=== PATIENT | female | born 1990 | race Caucasian/White ===

== ENCOUNTER 2016-03-31 16:31 | Emergency (ER) | payer OTHER ==
[~2016-03-31] VITALS: Wt 60.0 kg
[~2016-03-31 16:31] MED LIST: ALBU8.5H3 INH; DIC250 PO; FERR240T9 PO; GUAI120S26 PO; IBUP-1542 PO; PREN-39 PO
[2016-03-31] MEDS ORDERED: KETOROLAC 60 MG INJ IM STA (17:29)
[2016-03-31] MEDS ORDERED: ACETAMINOPHEN/CODEINE #3 TAB PO ONE (17:30)
--- NOTE | 2016-03-31 18:34 | RADRPT ---
PROCEDURE: XR Chest. CLINICAL INDICATION: Chest pain TECHNIQUE: Single AP portable chest. COMPARISON: 07/16/2015 FINDINGS: The cardiomediastinal silhouette is within normal limits..The lungs are clear though pleural effusio n or focal consolidation. The osseous structures and soft tissues are unremarkable. IMPRESSION: No evidence for active cardiopulmonary disease. RPTAT:AAJJ Ki Almeida Physician Date Time Electronically viewed and signed by Ki Almeida Physician on 03/31/2016 18:34 LIBERTAD/
[2016-03-31] MEDS ORDERED: TRAM50TA2 PO (18:48)
[2016-03-31] MEDS ORDERED: IBUP-1542 PO (18:48)
--- NOTE | 2016-03-31 18:50 | ERD ---
ER Documentation Chief Complaint Date/Time DATE: 03/31/16 TIME: 18:49 Chief Complaint LEFT SIDE CHEST PAIN SINCE LAST NIGHT NON TRAUMATIC HPI This 25-year-old female complains of left-sided anterior chest wall pain for last 1 day. She denies any lifting, recent cough, fevers. The pain is worse with touching. Slightly worse with movement and deep breathing. She denies any leg swelling, shortness of breath. ROS All systems reviewed and are negative except as per history of present illness. Medications Home Meds Active Scripts Tramadol HCl (Tramadol HCl) 50 Mg Tablet, 50 MG PO Q4 Y for PAIN, #15 TAB Prov:MILAGRO BRANCH MD 03/31/16 Ibuprofen* (Motrin*) 600 Mg Tab, 600 MG PO Q6, #20 TAB Prov:MILAGRO BRANCH MD 03/31/16 Djjbjqtevlw-Z-Flkqepqifb Hb* (Guaifenesin* DM Syrup) 120 Ml Syrup, 10 ML PO Q4H Y for COUGH, #120 ML Prov:CARY PETERS PA-C 07/16/15 Albuterol Sulfate* (Proair HFA*) 8.5 Gm Hfa.aer.ad, 2 PUFF INH Q4, #1 INHALER Prov:CARY PETERS PA-C 07/16/15 Ibuprofen* (Motrin*) 600 Mg Tab, 600 MG PO Q6, #30 TAB Prov:CARY PETERS PA-C 07/16/15 Dicloxacillin Sodium* (Dynapen*) 250 Mg Cap, 250 MG PO QID for 10 Days, CAP Prov:CHRISTEN CARREON 09/03/14 Reported Medications Ferrous Gluconate (Iron) 1 Tab Tablet, 1 TAB PO DAILY 07/15/13 Vits W-Ca,Fe,Fa(<1MG) ( Vitamins) 1 Tab Tablet, 1 TAB PO DAILY 07/15/13 Allergies Allergies: Coded Allergies: No Known Allergy (Unverified , 07/15/13) PMhx/Soc History of Surgery: Yes (C- SECTION X3) Anesthesia Reaction: No Hx Neurological Disorder: No Hx Respiratory Disorders: No Hx Cardiac Disorders: No Hx Psychiatric Problems: No Hx Miscellaneous Medical Probl: No Hx Alcohol Use: No Hx Substance Use: No Hx Tobacco Use: No Smoking Status: Never smoker Physical Exam Vitals Vital Signs Date Time Temp Pulse Resp B/P Pulse Ox O2 Delivery O2 Flow Rate FiO2 03/31/16 16:33 96.9 90 20 123/82 100 Physical Exam Const: [] Alert, [id number]. Head: Atraumatic Eyes: Normal Conjunctiva ENT: Normal External Ears, Nose and Mouth. Neck: Full range of motion..~ No meningismus. Resp: Clear to auscultation bilaterally Cardio: Regular rate and rhythm, no murmurs. There is tenderness in the left anterior chest wall. There is no crepitance or skin changes. Abd: Soft, non tender, non distended. Normal bowel sounds Skin: No petechiae or rashes Back: No midline or flank tenderness Ext: No cyanosis, or edema Neur: Awake and alert Psych: Normal Mood and Affect Results 24 hrs Current Medications Medications (Trade) Dose Ordered Sig/Kim Route PRN Reason Start Time Stop Time Status Last Admin Dose Admin Acetaminophen/ Codeine Phosphate (Tylenol No.3) 1 tab ONCE ONCE PO 03/31/16 17:30 03/31/16 17:31 DC 03/31/16 17:59 Ketorolac Tromethamine (Toradol) 60 mg ONCE STAT IM 03/31/16 17:29 03/31/16 17:30 DC 03/31/16 17:59 Procedures/MDM Chest X-ray 1V Interpreted by me: Soft Tissue: No acute abnormalities Bones: No acute abnormalities Mediastinum/Cardiac Silhouette/Lungs: [No acute abnormalities]. Impression- normal 1 view chest x-ray EKG: Rate/Rhythm: [Normal Sinus Rhythm] QRS, ST, T-waves: [No changes consistent w/ acute ischemia] Impression: [No evidence of ischemia or arrhythmia] rate equals 82 Patient presents with left chest wall pain of uncertain etiology, likely costochondritis. Patient is a well score of 0 there is no signs or symptoms to suggest acute coronary syndrome, pneumonia, hemothorax, pneumothorax, additional causes of chest wall pain. She was treated with ibuprofen Tylenol and observation at home. The patient was stable with no new complaints during the ER course. Clinically, there is no current evidence to suggest meningitis, sepsis, acute abdomen, pneumonia, acute coronary syndrome, pulmonary embolism, or any other emergent condition appearing to require further evaluation or hospitalization. The patient should certainly return for any new or worsening symptoms per the aftercare instructions. They should otherwise follow-up with her primary care doctor for reevaluation this week. Departure Diagnosis: Primary Impression: Chest pain Chest pain type: unspecified Qualified Code: R07.9 - Chest pain, unspecified type Condition: Stable Patient Instructions: Chest Pain, Uncertain Cause, Chest Wall Pain, Costochondritis Additional Instructions: Examines normal hoy. Cheque otro vez con moreno doctor primario en el proximo valente or regresa para mas o nueva simptomas. MILAGRO BRANCH MD Mar 31, 2016 18:50
[2016-03-31 19:06] VITALS: BP 127/80; PULSE 63; RESP 18; TEMP 98.7
== END 2016-03-31 19:08 | disposition home or self-care (01) ==
LOC: FTE 16:31
DX: R07.89 Other chest pain (principal)
CPT/HCPCS: 71010; 93005; 96372; J1885; Z7502; Z7610

== ENCOUNTER 2017-04-12 20:11 | Emergency (ER) | END 2017-04-13 01:26 | disposition left against medical advice (07) ==

== ENCOUNTER 2017-07-01 07:37 | Emergency (ER) | END 2017-07-01 09:53 | disposition home or self-care (01) ==

== ENCOUNTER 2018-01-21 16:18 | Emergency (ER) | END 2018-01-21 17:55 | disposition home or self-care (01) ==

== ENCOUNTER 2018-02-05 17:11 | Emergency (ER) | END 2018-02-05 20:01 | disposition home or self-care (01) ==

== ENCOUNTER 2018-05-21 05:46 | Inpatient (IN) | payer OTHER ==
[~2018-05-21] VITALS: Ht 157.5 cm; Wt 77.0 kg
[~2018-05-21 05:46] MED LIST changes: +ACET500C5 PO; -ALBU8.5H3 INH; +ALBU8.5H8 INH; +FAMO-96 PO; +IBUP800T48 PO; +TRAM50TA2 PO
[2018-05-21] MEDS ORDERED: ONDANSETRON (ODT) 4 MG TAB ODT STA (07:06)
[2018-05-21] MEDS ORDERED: HYDROCODONE/APAP (5/325) TAB PO ONE (07:30)
[2018-05-21] MEDS ORDERED: SOD CHLORIDE 0.9% 1,000 ML IV STA (08:53)
[2018-05-21] MEDS ORDERED: PIPER-TAZO 3.375 GM IV (PMX) 100 ML IVPB ONE (09:00)
--- NOTE | 2018-05-21 09:06 | EN ---
Date/Time of Note Date/Time of Note DATE: 05/21/18 TIME: 09:05 ER Progress Note I have seen and evaluated the patient along with the PA and/or ENERGY RISK MANAGEMENT ANALYST provider. I agree with the evaluation and plan of care. Please see their documentation for full ER course and evaluation. In short: Patient has right lower quadrant abdominal pain On exam: Tenderness of the right lower quadrant slightly medial to McBurney's point Assessment and plan: Patient has slight leukocytosis, right lower quadrant abdominal pain and CT concerning for appendicitis. The patient was given Zosyn. She is n.p.o. Dr. Ritter, on-call general surgeon was notified of admission. IV fluids provided. Accepting care team and consultations: I discussed the current laboratory data, diagnostic imaging and emergency care provided. Admitting team: Dr. Mehta Admitting team indication: Insurance directed, [facility] MICHELLE JAMIL MD May 21, 2018 09:06
--- NOTE | 2018-05-21 09:46 | ERD ---
ER Documentation Chief Complaint Chief Complaint abdominal pain since 329 HPI 27-year-old female presenting with abdominal pain. Patient states she has some right lower quadrant pain that started today.. Pain is constant. She states is been going on since this morning. She had one episode of vomiting. Denies any other medical problems. NKDA. Surgical history denies. Social history denies ROS All systems reviewed and are negative except as per history of present illness. Medications Home Meds Active Scripts Acetaminophen* (Tylophen*) 500 Mg Capsule, 1 CAP PO Q6H PRN for PAIN AND OR ELEVATED TEMP, #20 CAP Prov:MILAGRO BRANCH MD 02/05/18 Famotidine* (Pepcid*) 20 Mg Tablet, 20 MG PO BID for 14 Days, TAB Prov:MILAGRO BRANCH MD 02/05/18 Acetaminophen* (Tylophen*) 500 Mg Capsule, 1 CAP PO Q6H PRN for PAIN AND OR EL EVATED TEMP, #20 CAP Prov:CARY PETERS PA-C 01/21/18 Ibuprofen* (Motrin*) 800 Mg Tab, 800 MG PO Q6H PRN for PAIN AND OR ELEVATED TEMP, #30 TAB Prov:MICHELLE WALTERS MD 07/01/17 Tramadol HCl (Tramadol HCl) 50 Mg Tablet, 50 MG PO Q4 PRN for PAIN, #15 TAB Prov:MILAGRO BRANCH MD 03/31/16 Ibuprofen* (Motrin*) 600 Mg Tab, 600 MG PO Q6, #20 TAB Prov:MILAGRO BRANCH MD 03/31/16 Zarkwwpehkl-A-Ogusqbvnhw Hb* (Guaifenesin* DM Syrup) 120 Ml Syrup, 10 ML PO Q4H PRN for COUGH, #120 ML Prov:CARY PETERS PA-C 07/16/15 Albuterol Sulfate* (Proair HFA*) 8.5 Gm Hfa.aer.ad, 2 PUFF INH Q4, #1 INHALER Prov:CARY PETERS PA-C 07/16/15 Ibuprofen* (Motrin*) 600 Mg Tab, 600 MG PO Q6, #30 TAB Prov:CARY PETERS PA-C 07/16/15 Dicloxacillin Sodium* (Dynapen*) 250 Mg Cap, 250 MG PO QID for 10 Days, CAP Prov:CHRISTEN CARREON 09/03/14 Reported Medications Ferrous Gluconate (Iron) 1 Tab Tablet, 1 TAB PO DAILY 07/15/13 Vits W-Ca,Fe,Fa(<1MG) ( Vitamins) 1 Tab Tablet, 1 TAB PO DAILY 07/15/13 Allergies Allergies: Coded Allergies: No Known Allergy (Unverified , 05/21/18) PMhx/Soc History of Surgery: Yes (c section x 3 ) Anesthesia Reaction: No Hx Neurological Disorder: No Hx Respiratory Disorders: No Hx Cardiac Disorders: Yes (anemia) Hx Psychiatric Problems: No Hx Miscellaneous Medical Probl: No Hx Alcohol Use: No Hx Substance Use: No Hx Tobacco Use: No Smoking Status: Never smoker FmHx Family History: No diabetes, No coronary disease, No other Physical Exam Vitals Vital Signs Date Temp Pulse Resp B/P (MAP) Pulse Ox O2 O2 Flow FiO2 Time Delivery Rate 05/21/18 97.7 54 17 113/73 100 Room Air 08:57 (86) 05/21/18 97.9 62 18 114/56 100 05:50 (75) Physical Exam GENERAL: The patient is well-appearing, well-nourished, in no acute distress HEENT: Atraumatic. Conjunctivae are pink. Pupils equal, round, and reactive to light. There is no scleral icterus. Tympanic membranes clear bilaterally. Richard pharynx clear. NECK: C-spine is soft and supple. There is no meningismus. There is no cervical lymphadenopathy. CHEST: Clear to auscultation bilaterally. There are no rales, wheezes or rhonchi. HEART: Regular rate and rhythm. No murmurs, clicks, rubs or gallops. ABDOMEN: Normal active bowel sounds. Nontender to palpation of suprapubic region of the right lower quadrant. Mild epigastric pain. Patient does have pain with jumping.. BACK: No midline or flank tenderness. Result Diagram: 05/21/18 0714 05/21/18 0714 Results 24 hrs Laboratory Tests Test 05/21/18 07:14 05/21/18 07:15 05/21/18 07:17 White Blood Count 11.7 10^3/ul Red Blood Count 4.46 10^6/ul Hemoglobin 10.4 g/dl Hematocrit 34.4 % Mean Corpuscular Volume 77.1 fl Mean Corpuscular Hemoglobin 23.3 pg Mean Corpuscular 30.2 g/dl Hemoglobin Concent Red Cell Distribution Width 19.2 % Platelet Count 297 10^3/UL Mean Platelet Volume 9.9 fl Immature Granulocytes % 0.600 % Neutrophils % 77.6 % Lymphocytes % 12.8 % Monocytes % 7.9 % Eosinophils % 0.8 % Basophils % 0.3 % Nucleated Red Blood Cells % 0.0 /100WBC Immature Granulocytes # 0.070 10^3/ul Neutrophils # 9.1 10^3/ul Lymphocytes # 1.5 10^3/ul Monocytes # 0.9 10^3/ul Eosinophils # 0.1 10^3/ul Basophils # 0.0 10^3/ul Nucleated Red Blood Cells # 0.0 10^3/ul Sodium Level 142 mmol/L Potassium Level 4.5 mmol/L Chloride Level 104 mmol/L Carbon Dioxide Level 29 mmol/L Anion Gap 9 Blood Urea Nitrogen 11 mg/dl Creatinine 0.49 mg/dl Est Glomerular Filtrat > 60 mL/min Rate mL/min Glucose Level 101 mg/dl Calcium Level 9.6 mg/dl Total Bilirubin 0.2 mg/dl Direct Bilirubin 0.00 mg/dl Indirect Bilirubin 0.2 mg/dl Aspartate Amino 41 IU/L Transf (AST/SGOT) Alanine 70 IU/L Aminotransferase (ALT/SGPT) Alkaline Phosphatase 93 IU/L Total Protein 8.0 g/dl Albumin 4.7 g/dl Globulin 3.30 g/dl Albumin/Globulin Ratio 1.42 Lipase 62 U/L Urine Color YELLOW Urine Clarity CLEAR Urine pH 6.0 Urine Specific [place] 1.019 Urine Ketones NEGATIVE mg/dL Urine Nitrite NEGATIVE mg/dL Urine Bilirubin NEGATIVE mg/dL Urine Urobilinogen NEGATIVE mg/dL Urine Leukocyte Esterase NEGATIVE [place]/ul Urine Hemoglobin NEGATIVE mg/dL Urine Glucose NEGATIVE mg/dL Urine Total Protein NEGATIVE mg/dl POC Beta HCG, Qualitative NEGATIVE Current Medications Medications Dose Sig/Kim Start Time Status Last (Trade) Ordered Route PRN Stop Time Admin Dose Reason Admin 1 tab ONCE ONCE 05/21/18 DC 05/21/18 Acetaminophen PO 07:30 07:19 / 05/21/18 07:31 Hydrocodone Bitart ([place] (5/325)) Ondansetron 4 mg ONCE STAT 05/21/18 DC 05/21/18 HCl (Zofran ODT 07:06 07:19 Odt) 05/21/18 07:07 Piperacillin 100 ml @ ONCE ONCE 05/21/18 DC 05/21/18 Sod/ 200 mls/hr IVPB 09:00 09:01 Tazobactam 05/21/18 09:29 Sod Sodium 1,000 ml @ Q1H STAT 05/21/18 05/21/18 Chloride 1,000 mls/hr IV 08:53 09:01 05/21/18 09:52 Ondansetron 4 mg BRIDGE ORDER 05/21/18 HCl (Zofran PRN IV 10:00 Inj) NAUSEA/VOMITI 05/22/18 09:59 NG 650 mg ER BRIDGE 05/21/18 Acetaminophen PRN PO 10:00 (Tylenol .MILD PAIN 05/22/18 09:59 Tab) 1-3 OR TEMP Procedures/MDM DIAGNOSTIC IMAGING REPORT Patient: KIT TELLO : 1990 Age: 27 Sex: F MR #: [id number] DOS: 05/21/18 0706 Ordering MD: BRADLEY DOYLE PA-C Location: [facility] Room/Bed: PROCEDURE: CT Abdomen and Pelvis without contrast. CLINICAL INDICATION: Abdominal pain. TECHNIQUE: CT scan of the abdomen and pelvis without contrast was performed on a multidetector CT scanner. The patient was scanned without intravenous contrast. Coronal and sagittal reformatted images were obtained from the axial source images. Images were reviewed on a high-resolution PACS workstation. DICOM images are available. One or more of the following dose reduction techniques were used: -Automated exposure control. -Adjustment of the mA and/or kV according to patient size. -Use of iterative reconstruction technique. The total exam CTDI equals 12.53 mGy and the total exam DLP equals 746.81 mGy- cm. COMPARISON: Same day gallbladder ultrasound. FINDINGS: Overall exam is limited secondary to motion artifact. Please note that the sensitivity for detection of focal lesions or vascular disease is markedly reduced without intravenous contrast. There is dependent atelectatic changes. CT abdomen: Liver: Unremarkable. Biliary system: No intra or extrahepatic biliary ductal dilatation. Gallbladder: Unremarkable. Pancreas: Unremarkable. Spleen: Unremarkable. Adrenal glands: Unremarkable. Right kidney: Unremarkable. No renal or ureteric stones. No hydronephrosis or hydroureter. Left kidney: Unremarkable. No renal or ureteric stones. No hydronephrosis or hydroureter. Bowel loops: There is no bowel obstruction. Appendix is limited in evaluation due to motion artifact however appears dilated measuring 10 mm and contains dense intraluminal material, which may represent appendicolith. Lymph Nodes: There is no mesenteric lymphadenopathy. There is no retroperitoneal lymphadenopathy. Small fat-containing umbilical hernia. CT pelvis: Bowel loops: Unremarkable. Rectum: Unremarkable. Urinary bladder: Unremarkable. Globular appearance of the uterus with trace pelvic free fluid and mild pelvic stranding. Additional stranding along the anterior pelvic wall subcutaneous soft tissue. Lymph nodes: There is no iliac lymphadenopathy. There is no inguinal lymphadenopathy. Bone: No aggressive osseous lesions. IMPRESSION: 1. Overall exam is limited secondary to motion artifact. Appendix appears dilated measuring 10 mm and contains dense intraluminal material, which may represent appendicolith. Acute appendicitis not excluded, however the exam again is limited due to motion. Recommend clinical correlation. 2. Globular appearance of the uterus with trace pelvic free fluid and mild pelvi c stranding. Additional stranding along the anterior pelvic wall subcutaneous soft tissue. Recommend clinical correlation for status or any pelvic surgery. Consider further evaluation with dedicated pelvic ultrasound. DIAGNOSTIC IMAGING REPORT Patient: KIT TELLO : 1990 Age: 27 Sex: F MR #: [id number] DOS: 05/21/18 0706 Ordering MD: BRADLEY DOYLE PA-C Location: [facility] Room/Bed: PROCEDURE: US Abdomen. CLINICAL INDICATION: abdominal pain TECHNIQUE: Multiple real-time images were acquired of the patient's right upper quadrant abdomen and retroperitoneum utilizing a high resolution transducer. COMPARISON: US ABDOMEN 02/05/2018 FINDINGS: The liver demonstrates increased echogenicity. The liver is enlarged in size and no focal solid lesions are seen. The liver measures 17.7 cm in length. The portal vein is patent with normal direction of flow. No intrahepatic biliary dilatation is seen. No gallstones are identified within the gallbladder. There is no pericholecystic fluid or gallbladder wall thickening. The common bile duct measures 3 mm in maximal dimension. The visualized portions of the pancreas are unremarkable. The tail of the rodriguez creas is not seen. No free fluid is identified. The right kidney is normal in size, and demonstrate normal echogenicity and cortical thickness. The right kidney measures 11.6 cm in long dimension. There is no evidence of hydronephrosis. There are no kidney stones. RPTAT: AA IMPRESSION: Mild hepatomegaly with fatty infiltration of the liver. No evidence of gallstones. MDM: 27-year-old female presenting with abdominal pain. Patient did have pain when jumping. There is concern for appendicitis the patient will be admitted for observation and surgical consultation. This case was admitted by Dr. Walters. Patient is stable received antibiotics while the ER. JOO DOYLE PA-C May 21, 2018 09:46
[2018-05-21] MEDS ORDERED: ACETAMINOPHEN 325 MG TAB PO PRN (10:00)
[2018-05-21] MEDS ORDERED: ONDANSETRON 4 MG INJ IV PRN ×3 (10:00→21:30)
[2018-05-21 11:32] VITALS: Ht 157.5 cm; Wt 77.0 kg
--- NOTE | 2018-05-21 12:43 | QN ---
Documentation Comment PT SEEN AND EXAMINED BETTY LOMBARDO MD May 21, 2018 12:43
[2018-05-21] MEDS: SOD CHLORIDE 0.9% 1,000 ML IV SCH ×2 (12:48→22:41)
[2018-05-21] MEDS: morphine 2 MG INJ IV PRN ×2 (12:55→16:44)
[2018-05-21] MEDS ORDERED: NACL 0.9% 3 ML SYG IV SCH (13:00)
[2018-05-21] MEDS ORDERED: DOCUSATE SODIUM 100 MG CAP PO PRN (13:00)
[2018-05-21] MEDS ORDERED: METOCLOPRAMIDE 10 MG INJ IV PRN ×2 (13:00→21:30)
--- NOTE | 2018-05-21 13:55 | HP ---
DATE OF ADMISSION: 05/21/2018 REASON FOR ADMISSION: Right lower quadrant pain. HISTORY OF PRESENTING ILLNESS: This is a 27-year-old female with no past medical history who present ed to the emergency department complaining of acute onset of lower abdominal pain for 1 day. Accordi ng to the patient, the pain started having pain in the mid to lower abdomen this morning and then the pain moved to the right lower quadrant. Pain was constant. It was ongoing since this morning. The patient was having some nausea and 1 episode of vomiting. According to the patient, she is also hav ing some gas pain. Denied any fevers, chills and came to the emergency department. On arrival to ED , vital signs showed temperature of 97.7, pulse 60, respirations 17, blood pressure 113/73. White co unt was 11.7, hemoglobin 10.4, platelet count of 297. LFTs within normal limit except ALT of 70, lip ase of 62. UA was negative. The patient had a CT of the abdomen and pelvis that showed overall exam is limited. Appendix appears dilated measuring 10 mm contains dense intraluminal material which may represent appendicolith, acute appendicitis not excluded, globular appearance of uterus, trace pelvi c fluid and mild pelvic stranding, additional stranding on the anterior pelvic wall. I recommend cor relation of status on any pelvic surgery. The patient was given Zosyn and was admitted fo r possible appendicitis. PAST MEDICAL HISTORY: Anemia. ALLERGIES: NONE. PAST SURGICAL HISTORY: x3. MEDICATIONS TAKING AT HOME: Iron sulfate. SOCIAL HISTORY: Denies any history of smoking, alcohol or any drug use. Lives in [place]. REVIEW OF SYSTEMS: The patient complained of lower abdominal pain then moving to right lower quadran t. Denies any headache, any blurry vision. Intermittent chest pain on both sides secondary to gas p ain. Denies any shortness of breath. Denies any dizziness, Denies any hematemesis, any melena, any bright red blood per rectum. Denies any diarrhea. PHYSICAL EXAMINATION: VITAL SIGNS: Currently blood pressure is 113/76, afebrile, pulse is 56, saturating 100% on room air. GENERAL: The patient is awake, alert, oriented, does not appear to be in any acute distress. HEENT: Pupils are equal, round, reactive to light. NECK: Supple. No JVD. HEART: Regular rate and rhythm. LUNGS: Clear to auscultate bilaterally. ABDOMEN: Soft, some tenderness present in the suprapubic region and also in the right lower quadrant , pain in the McBurney's point, positive bowel sounds. EXTREMITIES: No clubbing, cyanosis or edema. LABORATORY DATA: Show white count of 11.7, hemoglobin 10.4, platelet count 297. BMP within normal l imit. ALT of 70. UA is negative. IMAGING: Gallbladder ultrasound shows mild hepatomegaly and fatty infiltration of liver. No evidenc e of gallstones. CT of the abdomen and pelvis shows appendix measured, dilated 10 mm, contains intra luminal material, appendicolith. Acute appendicitis cannot be excluded. Globular appearance of uter us, trace pelvic fluid. Consider further evaluation related pelvic ultrasound. ASSESSMENT AND PLAN: This is a 27-year-old female presenting with: 1. Acute onset of lower abdominal/right lower quadrant pain. CT of the abdomen and pelvis: Appendi x appears dilated measuring 10 mm containing dense intraluminal material, appendicolith and rule out acute appendicitis. 2. The patient also has trace pelvic fluid and mild pelvic stranding. 3. History of anemia, on iron. 4. Gas pain. 5. Leukocytosis. 6. Borderline elevated ALT; however the gallbladder ultrasound is negative. PLAN: At this period of time, the patient will be admitted to med-surg. The patient will be on n.p. o., started on IV fluids, started on Protonix and IV Zosyn. Surgery consultation has already been ob tained with Dr. Ritter. We will also check for PT, coags, chest x-ray and EKG. Rest of the treatmen t will depend on the patient's hospitalization course. Dictated By: BETTY MAHONEY/SUMEET Conf#: [id number] DID#: [id number] CC: JOSE RITTER MD;*EndCC*
[2018-05-21] MEDS: PIPER-TAZO 3.375 GM IV (PMX) 100 ML IVPB SCH ×2 (14:18→22:00)
[2018-05-21 14:40] VITALS: BP 100/52; PULSE 53; RESP 17
[2018-05-21] MEDS ORDERED: HYDROmorphONE 1 MG/ML SYG IV PRN (17:00)
--- NOTE | 2018-05-21 17:55 | RADRPT ---
Vent Rate: 58 bpm RR Interval: 0 msec UT Interval: 140 msec QRS Duration: 90 msec QT Interval: 466 msec QTC Interval: 457 msec P-R-T [place]: 35 - 41 - 28 degrees Sinus bradycardia Otherwise normal ECG Electronically Signed By: Rafi Mares
[2018-05-21 19:42] VITALS: BP 114/66; PULSE 79; RESP 20
--- NOTE | 2018-05-21 19:43 | CONS ---
Assessment/Plan Assessment/Plan Assessment/Plan (Daily) Abdominal pain , leukocytosis , consistent with acute appendicitis Explained my impression to patient , and rec for laparoscopic appendectomy . Details of procedure , expectations post op reviewed Have called OR . patient understands and is willing to proceed . Consultation Date/Type/Reason Admit Date/Time May 21, 2018 at 09:42 Date of Consultation: May 21, 2018 Type of Consult surgery consult Reason for Consultation Abdominal pain since yesterday . Worsening to level that she presented to ER for evaluation No prior significant past medical history . C section x 3 Date/Time of Note DATE: 05/21/18 TIME: 19:29 Hx of Present Illness patient states she began having lower and mid abdominal pain this morning , such that she finally presented to the ER for evaluation . On evaluation , she was noted to have an elevated WBC to 20k , and on CT a dilated appendix , consistent with acute appendicitis . Patient states only a history of anemia , unclear etiology Past Medical History Home Meds Active Scripts Acetaminophen* (Tylophen*) 500 Mg Capsule, 1 CAP PO Q6H PRN for PAIN AND OR ELEVATED TEMP, #20 CAP Prov:MILAGRO BRANCH MD 02/05/18 Famotidine* (Pepcid*) 20 Mg Tablet, 20 MG PO BID for 14 Days, TAB Prov:MILAGRO BRANCH MD 02/05/18 Acetaminophen* (Tylophen*) 500 Mg Capsule, 1 CAP PO Q6H PRN for PAIN AND OR ELEVATED TEMP, #20 CAP Prov:CARY PETERS PA-C 01/21/18 Ibuprofen* (Motrin*) 800 Mg Tab, 800 MG PO Q6H PRN for PAIN AND OR ELEVATED TEMP, #30 TAB Prov:MICHELLE JAMIL MD 07/01/17 Tramadol HCl (Tramadol HCl) 50 Mg Tablet, 50 MG PO Q4 PRN for PAIN, #15 TAB Prov:MILAGRO BRANCH MD 03/31/16 Ibuprofen* (Motrin*) 600 Mg Tab, 600 MG PO Q6, #20 TAB Prov:MILAGRO BRANCH MD 03/31/16 Kwitqdcaail-O-Nfwkssfrea Hb* (Guaifenesin* DM Syrup) 120 Ml Syrup, 10 ML PO Q4H PRN for COUGH, #120 ML Prov:AUTUMN PETERSIE Aubrie DALAL 07/16/15 Albuterol Sulfate* (Proair HFA*) 8.5 Gm Hfa.aer.ad, 2 PUFF INH Q4, #1 INHALER Prov:CARY PETERS Aubrie DALAL 07/16/15 Ibuprofen* (Motrin*) 600 Mg Tab, 600 MG PO Q6, #30 TAB Prov:FRANCARY Aubrie DALAL 07/16/15 Dicloxacillin Sodium* (Dynapen*) 250 Mg Cap, 250 MG PO QID for 10 Days, CAP Prov:CHRISTEN CARREON 09/03/14 Reported Medications Ferrous Gluconate (Iron) 1 Tab Tablet, 1 TAB PO DAILY 07/15/13 Vits W-Ca,Fe,Fa(<1MG) ( Vitamins) 1 Tab Tablet, 1 TAB PO DAILY 07/15/13 Medications Current Medications Sodium Chloride 1,000 ml @ 100 mls/hr Q10H IV Last administered on 05/21/18at 12:48; Admin Dose 100 MLS/HR; Start 05/21/18 at 12:41 IV Flush (NS 3 ml) 3 ml PER PROTOCOL IV ; Start 05/21/18 at 13:00 Ondansetron HCl (Zofran Inj) 4 mg Q6H PRN IV NAUSEA/VOMITING; Start 05/21/18 at 13:00 Metoclopramide HCl (Reglan) 10 mg Q6H PRN IV NAUSEA/VOMITING; Start 05/21/18 at 13:00 Acetaminophen (Tylenol Tab) 650 mg Q6H PRN PO .PAIN 1-3 OR TEMP; Start 05/21/18 at 13:00 Docusate Sodium (Colace) 100 mg Q12H PRN PO .CONSTIPATION; Start 05/21/18 at 13:00 Pantoprazole (Protonix Iv) 40 mg DAILY@06 IV ; Start 05/22/18 at 06:00 Piperacillin Sod/ Tazobactam Sod 100 ml @ 200 mls/hr Q8 IVPB Last administered on 05/21/18at 14:18; Admin Dose 200 MLS/HR; Start 05/21/18 at 15:00 Hydromorphone HCl (Dilaudid) 1 mg Q3H PRN IV SEVERE PAIN LEVEL 7-10; Start 05/21/18 at 17:00 Allergies: Coded Allergies: No Known Allergy (Unverified , 05/21/18) Social History Smoking Status: Never smoker Exam/Review of Systems Exam Vitals Vital Signs Date Temp Pulse Resp B/P (MAP) Pulse Ox O2 O2 Flow FiO2 Time Delivery Rate 05/21/18 98.1 53 17 100/52 98 14:40 (68) 05/21/18 Room Air 10:47 Exam a & O x 3 , swedish speaking only Lungs clear Cor reg rate rhythm , nl S1S2 Abd soft , obese , nondistended , moderate tenderness right lower quadrant Results Result Diagram: 05/21/18 0714 05/21/18 0714 Results 24hrs Laboratory Tests Test 05/21/18 07:14 05/21/18 07:15 05/21/18 07:17 05/21/18 12:54 White Blood Count 11.7 #H Red Blood Count 4.46 Hemoglobin 10.4 L Hematocrit 34.4 L Mean Corpuscular 77.1 L Volume Mean Corpuscular 23.3 L Hemoglobin Mean Corpuscular 30.2 L Hemoglobin Concent Red Cell 19.2 H Distribution Width Platelet Count 297 # Mean Platelet Volume 9.9 Immature 0.600 H Granulocytes % Neutrophils % 77.6 H Lymphocytes % 12.8 L Monocytes % 7.9 Eosinophils % 0.8 Basophils % 0.3 Nucleated Red Blood 0.0 Cells % Immature 0.070 H Granulocytes # Neutrophils # 9.1 H Lymphocytes # 1.5 Monocytes # 0.9 Eosinophils # 0.1 Basophils # 0.0 Nucleated Red Blood 0.0 Cells # Sodium Level 142 Potassium Level 4.5 Chloride Level 104 Carbon Dioxide Level 29 Anion Gap 9 Blood Urea Nitrogen 11 Creatinine 0.49 Est Glomerular > 60 Filtrat Rate mL/min Glucose Level 101 Calcium Level 9.6 Total Bilirubin 0.2 Direct Bilirubin 0.00 Indirect Bilirubin 0.2 Aspartate Amino 41 Transf (AST/SGOT) Alanine 70 H Aminotransferase (AL T/SGPT) Alkaline Phosphatase 93 Total Protein 8.0 Albumin 4.7 Globulin 3.30 H Albumin/Globulin 1.42 Ratio Lipase 62 Urine Color YELLOW Urine Clarity CLEAR Urine pH 6.0 Urine Specific 1.019 [place] Urine Ketones NEGATIVE Urine Nitrite NEGATIVE Urine Bilirubin NEGATIVE Urine Urobilinogen NEGATIVE Urine Leukocyte NEGATIVE Esterase Urine Hemoglobin NEGATIVE Urine Glucose NEGATIVE Urine Total Protein NEGATIVE POC Beta HCG, NEGATIVE Qualitative Prothrombin Time 13.2 Prothrombin Time 1.0 Ratio INR International 0.99 Normalized Ratio Medications Medication Current Medications Sodium Chloride 1,000 ml @ 100 mls/hr Q10H IV Last administered on 05/21/18at 12:48; Admin Dose 100 MLS/HR; Start 05/21/18 at 12:41 IV Flush (NS 3 ml) 3 ml PER PROTOCOL IV ; Start 05/21/18 at 13:00 Ondansetron HCl (Zofran Inj) 4 mg Q6H PRN IV NAUSEA/VOMITING; Start 05/21/18 at 13:00 Metoclopramide HCl (Reglan) 10 mg Q6H PRN IV NAUSEA/VOMITING; Start 05/21/18 at 13:00 Acetaminophen (Tylenol Tab) 650 mg Q6H PRN PO .PAIN 1-3 OR TEMP; Start 05/21/18 at 13:00 Docusate Sodium (Colace) 100 mg Q12H PRN PO .CONSTIPATION; Start 05/21/18 at 13:00 Pantoprazole (Protonix Iv) 40 mg DAILY@06 IV ; Start 05/22/18 at 06:00 Piperacillin Sod/ Tazobactam Sod 100 ml @ 200 mls/hr Q8 IVPB Last administered on 05/21/18at 14:18; Admin Dose 200 MLS/HR; Start 05/21/18 at 15:00 Hydromorphone HCl (Dilaudid) 1 mg Q3H PRN IV SEVERE PAIN LEVEL 7-10; Start 05/21/18 at 17:00 JOSE LAGUNA MD May 21, 2018 19:39
--- NOTE | 2018-05-21 21:29 | PREAC ---
Date/Time of Note Date/Time of Note DATE: 05/21/18 TIME: 21:28 Anesthesia Eval and Record Evaluation Time Pre-Procedure Interview DATE: 05/21/18 TIME: 21:28 Age 27 Sex female NPO: 8 hrs Preoperative diagnosis Acute Appendicitis Planned procedure Laparoscopic Appendicitis Past Medical History Past Medical History: Includes Pulm: Asthma Heme: Anemia Surgery & Anesthesia Issues No known issue Meds Anticoagulation: No Beta Gale within 24 hr: No Reason Beta Gale not given: Pt. not on B-Gale Active Scripts Acetaminophen* (Tylophen*) 500 Mg Capsule, 1 CAP PO Q6H PRN for PAIN AND OR ELEVATED TEMP, #20 CAP Prov:MILAGRO BRANCH MD 02/05/18 Famotidine* (Pepcid*) 20 Mg Tablet, 20 MG PO BID for 14 Days, TAB Prov:MILAGRO BRANCH MD 02/05/18 Acetaminophen* (Tylophen*) 500 Mg Capsule, 1 CAP PO Q6H PRN for PAIN AND OR ELEVATED TEMP, #20 CAP Prov:CARY PETERS PA-C 01/21/18 Ibuprofen* (Motrin*) 800 Mg Tab, 800 MG PO Q6H PRN for PAIN AND OR ELEVATED TEMP, #30 TAB Prov:MICHELLE JAMIL MD 07/01/17 Tramadol HCl (Tramadol HCl) 50 Mg Tablet, 50 MG PO Q4 PRN for PAIN, #15 TAB Prov:MILAGRO BRANCH MD 03/31/16 Ibuprofen* (Motrin*) 600 Mg Tab, 600 MG PO Q6, #20 TAB Prov:MILAGRO BRANCH MD 03/31/16 Tbaalferjye-E-Czdbmtcxrj Hb* (Guaifenesin* DM Syrup) 120 Ml Syrup, 10 ML PO Q4H PRN for COUGH, #120 ML Prov:CARY PETERS PA-C 07/16/15 Albuterol Sulfate* (Proair HFA*) 8.5 Gm Hfa.aer.ad, 2 PUFF INH Q4, #1 INHALER Prov:CARY PETERS PA-C 07/16/15 Ibuprofen* (Motrin*) 600 Mg Tab, 600 MG PO Q6, #30 TAB Prov:CARY PETERS PA-C 07/16/15 Dicloxacillin Sodium* (Dynapen*) 250 Mg Cap, 250 MG PO QID for 10 Days, CAP Prov:CHRISTEN CARREON 09/03/14 Reported Medications Ferrous Gluconate (Iron) 1 Tab Tablet, 1 TAB PO DAILY 07/15/13 Vits W-Ca,Fe,Fa(<1MG) ( Vitamins) 1 Tab Tablet, 1 TAB PO DAILY 07/15/13 Current Medications Sodium Chloride 1,000 ml @ 100 mls/hr Q10H IV Last administered on 05/21/18at 12:48; Admin Dose 100 MLS/HR; Start 05/21/18 at 12:41 IV Flush (NS 3 ml) 3 ml PER PROTOCOL IV ; Start 05/21/18 at 13:00 Ondansetron HCl (Zofran Inj) 4 mg Q6H PRN IV NAUSEA/VOMITING; Start 05/21/18 at 13:00 Metoclopramide HCl (Reglan) 10 mg Q6H PRN IV NAUSEA/VOMITING; Start 05/21/18 at 13:00 Acetaminophen (Tylenol Tab) 650 mg Q6H PRN PO .PAIN 1-3 OR TEMP; Start 05/21/18 at 13:00 Docusate Sodium (Colace) 100 mg Q12H PRN PO .CONSTIPATION; Start 05/21/18 at 13:00 Pantoprazole (Protonix Iv) 40 mg DAILY@06 IV ; Start 05/22/18 at 06:00 Piperacillin Sod/ Tazobactam Sod 100 ml @ 200 mls/hr Q8 IVPB Last administered on 05/21/18at 14:18; Admin Dose 200 MLS/HR; Start 05/21/18 at 15:00 Hydromorphone HCl (Dilaudid) 1 mg Q3H PRN IV SEVERE PAIN LEVEL 7-10; Start 05/21/18 at 17:00 Meds reviewed: Yes Allergies Coded Allergies: No Known Allergy (Unverified , 05/21/18) Allergies Reviewed: Yes Labs/Studies Labs Reviewed: Reviewed by anesthesiologist Result Diagram: 05/21/18 0714 05/21/18 0714 Laboratory Tests 05/21/18 07:14 test: Negative Studies: ECG (n/a), CXR (n/a) Pre-procedure Exam Last vitals Vital Signs Date Temp Pulse Resp B/P (MAP) Pulse Ox O2 O2 Flow FiO2 Time Delivery Rate 05/21/18 97.9 79 20 114/66 95 19:42 (82) 05/21/18 Room Air 10:47 Airway: Adequate mouth opening, Adequate thyromental dist Mallampati: Mallampati II Teeth: Normal Lung: Normal Heart: Normal ASA Physical Status ASA physical status: 2 Emergency: E Planned Anesthetic General/MAC: ETT Nerve block: TAP (bilateral) Planned Pain Management Single shot nerve block, Parenteral pain med Pre-operative Attestations Prior to commencing anesthesia and surgery, the patient was re-evaluated, there was verification of: *The patient's identity *The results of appropriate recent lab work and preoperative vital signs *The above evaluation not changing prior to induction *Anesthetic plan, risk benefits, alternative and complications discussed with patient/family; questions answered; patient/family understands, accepts and wishes to proceed. SUNI DELUNA MD May 21, 2018 21:29
[2018-05-21] MEDS ORDERED: EPHEDrine SULFATE 50 MG/5 ML SYG IV PRN (21:30)
[2018-05-21] MEDS ORDERED: MEPERIDINE 25 MG INJ IV PRN (21:30)
[2018-05-21] MEDS ORDERED: OXYCODONE/ACETAMINOPHEN (5/325) TAB PO PRN (21:30)
[2018-05-21] MEDS ORDERED: DIPHENHYDRAMINE 50 MG INJ IV PRN (21:30)
[2018-05-21] MEDS ORDERED: HYDROmorphONE 1 MG/5 ML IV SYRINGE IV PRN ×3 (21:30)
[2018-05-21] MEDS ORDERED: FENTAnyl 50 MCG/ML VIAL IV PRN ×3 (21:30)
[2018-05-21] MEDS ORDERED: LABETALOL HCL 20MG INJ IV PRN (21:30)
[2018-05-21] MEDS ORDERED: MIDAZOLAM 1 MG/ML 2 ML INJ ONE (21:31)
[2018-05-21] MEDS ORDERED: ROCURONIUM 50 MG INJ ONE (21:31)
[2018-05-21] MEDS ORDERED: ROPIVACAINE 0.2% 20 ML VIAL ONE (21:31)
[2018-05-21] MEDS ORDERED: FENTAnyl 50 MCG/ML VIAL ONE (21:31)
[2018-05-21] MEDS ORDERED: PROPOFOL 20 ML ONE (21:31)
[2018-05-21] MEDS ORDERED: CEFAZOLIN 1 GM INJ ONE (23:13)
[2018-05-21] MEDS ORDERED: DEXAMETHASONE 4 MG/ML 5 ML INJ ONE (23:38)
[2018-05-21] MEDS ORDERED: ONDANSETRON 4 MG INJ ONE (23:38)
[2018-05-21] MEDS ORDERED: METOCLOPRAMIDE 10 MG INJ ONE (23:38)
[2018-05-21] MEDS ORDERED: KETOROLAC 30 MG INJ ONE (23:40)
[2018-05-21] MEDS ORDERED: SUGAMMADEX SODIUM 200 MG/2 ML VIAL IV ONE (23:40)
[2018-05-21] MEDS ORDERED: PHENYLephrine (100 MCG/ML) 5ML SYG ONE (23:43)
[2018-05-21 23:50] VITALS: BP 108/58; PULSE 75; RESP 15
--- NOTE | 2018-05-21 23:54 | PAC ---
Date/Time of Note Date/Time of Note DATE: 05/21/18 TIME: 23:54 Post-Anesthesia Notes Post-Anesthesia Note Last documented vital signs Vital Signs Date Temp Pulse Resp B/P (MAP) Pulse Ox O2 O2 Flow FiO2 Time Delivery Rate 05/21/18 97.9 79 20 114/66 95 23:42 (82) 05/21/18 Room Air 10:47 Activity: WNL Respiratory function: WNL Cardiovascular function: WNL Mental status: Baseline Pain reasonably controlled: Yes Hydration appropriate: Yes Nausea/Vomiting absent: Yes SUNI DELUNA MD May 21, 2018 23:54
[2018-05-21 23:55] VITALS: BP 101/49; PULSE 68; RESP 14
--- NOTE | 2018-05-21 23:57 | OPR ---
Date/Time of Note Date/Time of Note DATE: 05/21/18 TIME: 23:52 Operative Report Free Text/Dictation Operative report Procedure Date: May 21, 2018 Preoperative Diagnosis Acute appendicitis Postoperative Diagnosis Acute appendicitis Multiple ovarian cyst Possible endometriosis Operation/Procedure Performed Laparoscopic appendectomy Surgeon Jose Ritter MD see signature line Inspector Rough Castings None Anesthesia Type: general Anesthesiologist: SUNI DELUNA MD Estimated Blood Loss: 0 - 10 ml's Transfusion none Specimen Appendix Grafts/Implants none Tubes/Drains None Complications none Pt Condition Post Procedure: stable Disposition: PACU Indications Worsening abdominal pain right greater than left with leukocytosis signs and symptoms consistent with acute appendicitis. Patient noted on the CAT scan also multiple cysts in bilateral ovaries. Patient was for laparoscopic appendectomy. Risk benefits alternatives were discussed patient understood and agreed to proceed Procedure Description Patient brought to the operating placed supine position general she is administered with intubation patient was prepped and draped in standard sterile fashion tap block was performed by anesthesia. Timeout was completed. Veress needle was placed in the left upper quadrant at Suazo's point. Insufflation delivered to maintain pneumoperitoneum at 15 mmHg throughout the procedure. Small stab incision made just above the umbilicus and a 5 mm trocar was inserted under direct visualization with 30 degree laparoscope. Next an infraumbilical 5 mm trocar and a suprapubic 12 mm trocar was inserted. The cecum was somewhat cephalad of normal position and there are multiple loops of small bowel and with change in position to a more right side up the cecum was able to be grasped gently and the appendix identified the appendix was markedly thickened with the distal tip showed signs of acute inflammation though there is no evidence of perforation. A window was made in the mesoappendix and an Gabbs 35 mm vascular stapler was used to divide the appendix first and then a second application for the mesoappendix the staple line was inspected irrigated small oozing on the staple line was controlled with monopolar cautery. A specimen bag was inserted and the appendix placed and this was brought through that wound. Hemostasis appeared to be excellent most acutely fluid was aspirated. The pneumoperitoneum was allowed to escape the trochars removed skin incision closed with 4-0 Monocryl and Dermabond for dressing patient was explained the operative brought recovery in stable condition. Sponge and needle count correct x2. JOSE RITTER MD May 21, 2018 23:57
[2018-05-22] VITALS (17 sets, daily range): BP systolic 83–102; BP diastolic 49–67; PULSE 50–87; RESP 11–20
[2018-05-22] MEDS ORDERED: HYDROmorphONE 0.5 MG/0.5 ML SYG IV PRN
[2018-05-22] MEDS ORDERED: ONDANSETRON 4 MG INJ IV PRN
[2018-05-22] MEDS: D5W-0.45 NACL + KCL 20 MEQ 1,000 ML IV SCH ×2 (01:18→09:57)
[2018-05-22] MEDS ORDERED: PANTOPRAZOLE 40 MG INJ IV SCH (06:00)
[2018-05-22] MEDS: PIPER-TAZO 3.375 GM IV (PMX) 100 ML IVPB SCH ×3 (06:00→21:53)
[2018-05-22] MEDS: SOD CHLORIDE 0.9% 1,000 ML IV SCH ×2 (08:38→12:47)
[2018-05-22] MEDS ORDERED: FAMOTIDINE 20 MG INJ IV SCH (09:00)
--- NOTE | 2018-05-22 11:07 | PN ---
Date/Time of Note Date/Time of Note DATE: 05/22/18 TIME: 11:03 Assessment/Plan VTE Prophylaxis Risk score (from Ns)>0 risk: 6 SCD applied (from [facility] [place]): Yes Pharmacological prophylaxis: NA/contraindicated Pharm contraindication: surgical contra Lines/Catheters IV Catheter Type (from [facility]): Peripheral IV Assessment/Plan Hospital Course 1. Acute onset of lower abdominal/right lower quadrant pain. Acute appendicitis, S/p appendectomy 2. The patient also has trace pelvic fluid and mild pelvic stranding. 3. History of microcytic hypochromic anemia, on iron supplement. 4. Gas pain resolved. 5. SIRS with leukocytosis. 6. Borderline elevated ALT; however the gallbladder ultrasound is negative. 7. Obesity 8. Fatty liver infiltration 9. Possible endometriosis. Enlarged uterus, multiple ovarian cyst per surgical observation dr Ritter. 10. Hypotension Assessment/Plan - med-surg. - soft diet, - decreased IV fluids, keeep for hypotension -GI prophylaxis Famotidine BID -c/w IV Zosyn. -Surgery consultation Dr. Ritter is appreciated. -EKG showed bradycardia. Result Diagram: 05/21/1871305/21/1814 Results 24hrs Laboratory Tests Test 05/21/18 12:54 Prothrombin Time 13.2 Prothrombin Time Ratio 1.0 INR International Normalized Ratio 0.99 Subjective 24 Hr Interval Summary Gastrointestinal: pain, nausea Exam/Review of Systems Exam Vitals Vital Signs Date Temp Pulse Resp B/P (MAP) Pulse Ox O2 O2 Flow FiO2 Time Delivery Rate 05/22/18 99.1 61 18 83/50 (61) 99 Room Air 07:31 05/22/18 10.0 00:05 Intake and Output 05/21/18 05/21/18 05/22/18 1515:00 23:00 07:00 IntakeIntake Total 100 ml 800 ml 1130 ml OutputOutput Total 2 ml BalanceBalance 100 ml 800 ml 1128 ml Constitutional: alert, oriented Neck: supple Respiratory: clear to auscultation Cardiovascular: regular rate and rhythm Gastrointestinal: soft, surgical scars Results Results 24hrs Laboratory Tests Test 05/21/18 12:54 Prothrombin Time 13.2 Prothrombin Time Ratio 1.0 INR International Normalized Ratio 0.99 Medications Medication Current Medications Sodium Chloride 1,000 ml @ 100 mls/hr Q10H IV Last administered on 05/21/18at 12:48; Admin Dose 100 MLS/HR; Start 05/21/18 at 12:41 IV Flush (NS 3 ml) 3 ml PER PROTOCOL IV ; Start 05/21/18 at 13:00 Ondansetron HCl (Zofran Inj) 4 mg Q6H PRN IV NAUSEA/VOMITING; Start 05/21/18 at 13:00 Metoclopramide HCl (Reglan) 10 mg Q6H PRN IV NAUSEA/VOMITING; Start 05/21/18 at 13:00 Acetaminophen (Tylenol Tab) 650 mg Q6H PRN PO .PAIN 1-3 OR TEMP; Start 05/21/18 at 13:00 Docusate Sodium (Colace) 100 mg Q12H PRN PO .CONSTIPATION; Start 05/21/18 at 13:00 Pantoprazole (Protonix Iv) 40 mg DAILY@06 IV Last administered on 05/22/18at 06:00; Admin Dose 40 MG; Start 05/22/18 at 06:00 Piperacillin Sod/ Tazobactam Sod 100 ml @ 200 mls/hr Q8 IVPB Last administered on 05/22/18at 06:00; Admin Dose 200 MLS/HR; Start 05/21/18 at 15:00 Hydromorphone HCl (Dilaudid) 1 mg Q3H PRN IV SEVERE PAIN LEVEL 7-10; Start 05/21/18 at 17:00 Ondansetron HCl (Zofran Inj) 4 mg Q6H PRN IV NAUSEA AND/OR VOMITING; Start 05/22/18 at 00:00 Hydromorphone HCl (Dilaudid) 0.5 mg Q4H PRN IV PAIN LEVEL 8-10; Start 05/22/18 at 00:00 Potassium Chloride/Dextrose/ Sod Cl 1,000 ml @ 100 mls/hr Q10H IV Last administered on 05/22/18at 01:18; Admin Dose 100 MLS/HR; Start 05/21/18 at 23:57 Famotidine (Pepcid Iv) 20 mg Q12 IV Last administered on 05/22/18 08:41; Admin Dose 20 MG; Start 05/22/18 at 09:00 CONNER SOLIS 16, 2019 11:07
[2018-05-22] MEDS: ACETAMINOPHEN 325 MG TAB PO PRN ×2 (14:05→20:01)
[2018-05-22] MEDS: FAMOTIDINE 20 MG TAB PO SCH (21:53)
[2018-05-23 02:00] VITALS: BP 100/56; PULSE 96; RESP 19
[2018-05-23] MEDS: PIPER-TAZO 3.375 GM IV (PMX) 100 ML IVPB SCH ×2 (06:22→15:57)
[2018-05-23 07:15] VITALS: BP 112/53; PULSE 58; RESP 18
[2018-05-23] MEDS: SOD CHLORIDE 0.9% 1,000 ML IV SCH (07:30)
[2018-05-23] MEDS: FAMOTIDINE 20 MG TAB PO SCH (09:54)
[2018-05-23 14:40] VITALS: BP 109/58; PULSE 56; RESP 18
--- NOTE | 2018-05-23 16:34 | PDOCDIS ---
Discharge Instructions CONDITION [id number] Patient Condition: [id number] Stable HOME CARE INSTRUCTIONS: [id number] Special Diet: Ovece0k soft diet ACTIVITY: [id number] Activity Restrictions: [id number] Slowly Increase Activity FOLLOW UP/APPOINTMENTS Follow-up Plan f/u pcp 1 wk,see dr north 1 wk CARA DIAMOND MD May 23, 2018 16:34
[2018-05-23] MEDS ORDERED: AMOX1TAB10 PO (16:37)
[2018-05-23] MEDS ORDERED: DOCU-144 PO (16:37)
--- NOTE | 2018-05-23 17:57 | QN ---
Documentation Comment [id number] stable for fl CARA DIAMOND MD May 23, 2018 17:57
--- NOTE | 2018-05-23 18:34 | DS ---
DATE OF ADMISSION: 05/21/2018 DATE OF DISCHARGE: HOSPITAL COURSE: The patient was admitted with abdominal pain, noted to have acute appendicitis. In itial impression, patient has acute onset of lower abdominal pain right lower quadrant, also has a tr tiffanie pelvic fluid in mid, mild pelvic stranding, history of anemia, gas pain, leukocytosis. The patie nt was seen by Dr. Reza Ritter in consultation and patient underwent laparoscopic appendectomy. Po stop course is stable. The patient's white count is stable. The patient is eating and drinking okay and is stable to be discharged. DISCHARGE DIAGNOSES: 1. Abdominal pain. 2. Acute appendicitis. 3. Leukocytosis. 4. Anemia. DISCHARGE MEDICATIONS: To continue on: 1. Docusate sodium. 2. Pepcid. 3. Tylenol. 4. Augmentin. The patient to follow with Dr. Ritter and patient's own primary care doctor as an outpatient. DISPOSITION: The patient is stable at the time of discharge. Dictated By: CARA ARENAS/SUMEET Conf#: [id number] DID#: [id number] CC: BETTY LOMBARDO;*EndCC*
== END 2018-05-23 18:15 | disposition home or self-care (01) | DRG 342 ==
LOC: FTE 05:46 → 5EC 09:42
PROVIDERS: ADMIT Internal Medicine; ATTEND Internal Medicine
PROC: 0DTJ4ZZ Resection of Appendix, Percutaneous Endoscopic Approach (ICD-10-PCS; principal; 2018-05-21 22:00)
DX: K35.80 Unspecified acute appendicitis (principal); R65.10 Systemic inflammatory response syndrome (SIRS) of non-infectious origin without acute organ dysfunction; N83.202 Unspecified ovarian cyst, left side; N83.201 Unspecified ovarian cyst, right side; K76.0 Fatty (change of) liver, not elsewhere classified; N80.9 Endometriosis, unspecified; E66.9 Obesity, unspecified; Z68.31 Body mass index [BMI] 31.0-31.9, adult; D64.9 Anemia, unspecified
CPT/HCPCS: 36415; 71045; 74176; 76705; 76856; 80048; 80053; 81003; 81025; 83690; 85025; 85610; 88304; 93005; 96365; C9113; J0690; J1100; J1170; J1885; J2250; J2270; J2370; J2405; J2543; J2765; J2795; J3010; J3480; J7030